=== PATIENT | male | born 1960 | race Caucasian/White ===

== ENCOUNTER 2023-06-28 11:20 | Emergency (ER) | payer MEDICARE, SELFPAY ==
--- NOTE | ~2023-06-28 | XR_ITS ---
EXAMINATION: XR shoulder RT min 2V DATE: 06/28/2023 13:29 INDICATION: Right shoulder pain. Fall. TECHNIQUE: 4 views of right shoulder were obtained. COMPARISON: None. FINDINGS: Bone alignment is normal. No fracture. There is severe osteoarthritis of acromioclavicular joint. Glenohumeral joint is normal. IMPRESSION: 1. Severe acromioclavicular joint osteoarthritis. Reviewed, dictated and finalized at location A.
--- NOTE | ~2023-06-28 | XR_ITS ---
EXAMINATION: [id number] DATE: 06/28/2023 13:29 INDICATION: Neck pain. Fall. TECHNIQUE: 5 views of the cervical spine on 6 radiographs were obtained. COMPARISON: None. FINDINGS: There is 3 degrees levocurvature of cervicothoracic spine. Vertebral body heights are darwin l. There is mildly decreased disc height at C5-C6 and C6-C7. There is multilevel mild facet joint ost eoarthritis. There is no neural foraminal stenosis or central canal stenosis. IMPRESSION: 1. Mild cervical spondylosis. Reviewed, dictated and finalized at location A.
[2023-06-28 11:38] VITALS: BP 117/82; PULSE 69; RESP 16; TEMP 36.6; O2SAT 99
--- NOTE | 2023-06-28 12:52 | ED.FALL ---
HPI - Fall General Chief Complaint: Fall Stated Complaint: Right side fall/pain Time Seen by Provider: 06/28/23 12:52 Source: patient, RN notes reviewed and old records reviewed Mode of arrival: ambulatory Limitations: no limitations History of Present Illness HPI Narrative: 62-year-old male who presents to [facility] with complaints of falling at [facility] yesterday around 0900 with pain noted to the right shoulder and right neck and to right lower lateral leg. Patient reports that his pain has increased to his right shoulder and neck and he wants x-rays to make sure he hasn't broke something. Patient reports that he did not hit his head or have any LOC.Patient is ambulating with steady gait and is able to put weight down on his right leg. MD complaint: fall Onset (ago): day(s) (yesterday around 0900) Fall from: standing Place fall occurred: other ([facility]) Loss of consciousness: none Location of injury - extremities: Right: shoulder and lower leg (outer mid proximal leg) Severity scale (1-10): 8 Quality: other (soreness) Related Data Home Medications Medication Instructions Recorded Confirmed amlodipine 10 mg tablet mg 06/28/23 dapagliflozin propaned 10 PO 06/28/23 mg-metformin ER 1,000 mg tablet,ext rel 24hr (Xigduo XR) lisinopril 40 mg tablet mg 06/28/23 mirtazapine 15 mg tablet mg 06/28/23 pregabalin 150 mg capsule mg 06/28/23 Allergies Allergy/AdvReac Type Severity Reaction Status Date / Time tramadol Allergy Unknown Verified 06/28/23 11:37 Review of Systems Review of Systems: CONSTITUTIONAL: Denies fever, chills, or sweats. EYES: Denies visual changes, redness, or discharge. ENT: Denies rhinorrhea, congestion, sore throat, or otalgia. CARDIOVASCULAR: Denies chest pain, palpitations, or edema. RESPIRATORY: Denies cough or dyspnea. GASTROINTESTINAL: Denies abdominal pain, nausea, vomiting, or diarrhea. GENITOURINARY: Denies dysuria or hematuria. SKIN: Denies rash or itching. MUSCULOSKELETAL: Reports pain to right shoulder and right side of neck and to right lateral lower leg NEUROLOGIC: Denies headache, numbness, or weakness. PSYCHIATRIC: Denies anxiety or depression. All systems reviewed & are unremarkable except as noted in HPI and below PMFSH Past Medical History Medical History (Updated 06/30/23 @ 07:19 by Thuy Flower NP) Diabetes Hypertension Social History Social History (Updated 06/30/23 @ 07:07 by Thuy Flower NP) Gender identity (if verbalized by the patient): Male Comments At time of signature, agree with nursing past medical, surgical, social and family history. There is no relevant family history pertinent to the presenting complaint Exam Narrative: GENERAL: Well-appearing, well-nourished, and in no acute distress. HEAD: Normocephalic, atraumatic. EYES: PERRLA and EOMI. ENT: Nares clear, no rhinorrhea or epistaxis. Mucous membranes moist. NECK: Supple. reports pain right side of neck able to move on own power CHEST: Clear to auscultation. No respiratory distress.SAO2 99% on room air HEART: Regular rate and rhythm. No murmur heard. Normal peripheral pulses. ABDOMEN: Soft, nontender, nondistended, normal active bowel sounds. EXTREMITIES: Normal range of motion. No edema.Reports pain to right shoulder states is stiff and sore noted some discomfort with abduction of right arm, strong pulses to right arm, no redness or bruising noted SKIN: Warm, dry, no rash. NEURO: No focal deficits. Alert and oriented x3. Course Course Emergency Course: Patient is aware of diagnosis, understands and agrees to treatment plan.? Anticipatory guidance given.? Patient agrees to follow-up as directed and is aware of reasons to seek care at the emergency department. Portions of this record may have been created with voice recognition software Level of Care: Express Care Visit Vital Signs Vital signs: Vital Signs Temperature 36.6 C
== END 2023-06-28 14:25 | disposition home or self-care (01) ==
PROVIDERS: Emergency Provider Registered Nurse; PCP Family Medicine
DX: M25.511 Pain in right shoulder (principal); M54.2 Cervicalgia; S80.11XA Contusion of right lower leg, initial encounter; W19.XXXA Unspecified fall, initial encounter; Y92.511 Restaurant or cafe as the place of occurrence of the external cause; E11.9 Type 2 diabetes mellitus without complications; I10 Essential (primary) hypertension
CPT/HCPCS: 72040; 73030; 99213; G0463